=== PATIENT | female | born 1965 | race Caucasian/White ===

== ENCOUNTER 2018-11-20 15:01 | Emergency (ER) | payer OTHER, MEDICAID, SELFPAY ==
[2018-11-20 15:05] VITALS: BP 148/125; PULSE 95; RESP 18; TEMP 36.6; O2SAT 98
--- NOTE | 2018-11-20 15:08 | DI.RAD.S_ITS ---
PROCEDURE: XR SHOULDER LT MIN 2V INDICATIONS: severe left shoulder pain TECHNIQUE: 3 views of the shoulder were acquired. COMPARISON: None. FINDINGS: Bones: No acute fractures or dislocations. There is mild acromioclavicular joint degeneration. No suspicious bony lesions. Visualized ribs demonstrate old fractures of the 3rd through 6th ribs. Soft tissues: No suspicious soft tissue calcifications. IMPRESSION: 1. No acute fracture or subluxation. 2. Mild acromioclavicular joint degeneration. 3. Old healed left rib fractures noted. Dictated by: Surinder Lloyd M.D. on 11/20/2018 at 16:07 Approved by: Surinder Lloyd M.D. on 11/20/2018 at 16:10
--- NOTE | 2018-11-20 15:13 | PC.NURSE ---
Noted hypertensive: pt takes lisinopril at night
--- NOTE | 2018-11-20 15:21 | ED.EXTPRO ---
HPI - Extremity Problem General Chief complaint: Extremity Problem,Nontraumatic Stated complaint: Left shoulder pain x7 days Time Seen by Provider: 11/20/18 15:01 Source: patient Mode of arrival: ambulatory Limitations: no limitations History of Present Illness HPI Narrative: 53F former smoker patient presents with L shoulder pain in the absence of obvious injury. She has significant pain on her anterior shoulder with range of motion. She denies any chest pain or shortness of breath. She denies any head neck or back pain. She denies any numbness, tingling or weakness. She says it feels a lot like when she had injuries to her right shoulder which required rotator cuff repair Complaint: extremity pain Onset (ago): day(s) Pain Consistency: constant Quality: burning and aching Radiation: none Relieving factors: rest Exacerbating factors: range of motion Associated symptoms: denies other symptoms Related Data Home Medications Medication Instructions Recorded Confirmed diclofenac sodium 75 mg PO BID 11/20/18 11/20/18 gabapentin 100 mg PO TID 11/20/18 lisinopril 10 mg PO DAILY 11/20/18 11/20/18 meloxicam 15 mg PO DAILY 11/20/18 11/20/18 Previous Rx's Medication Instructions Recorded lidocaine 1 patch TOP DAILY #30 each 11/20/18 Allergies Allergy/AdvReac Type Severity Reaction Status Date / Time No Known Drug Allergies Allergy Verified 11/20/18 15:12 Review of Systems Constitutional Denies chills, Denies fever(s), Denies lethargy and Denies weakness Eyes Denies change in vision, Denies eye discharge, Denies irritation and Denies loss of vision ENT Ears, Nose, Mouth, and Throat: Denies change in voice, Denies neck pain and Denies sore throat Cardiovascular Denies chest pain, Denies irregular heart rhythm, Denies lightheadedness, Denies palpitations, Denies dyspnea, Denies dyspnea on exertion and Denies orthopnea Respiratory Denies cough, Denies dyspnea, Denies dyspnea on exertion and Denies wheezing Gastrointestinal Gastrointestinal: Denies abdominal pain, Denies change in bowel habits, Denies diarrhea, Denies nausea and Denies vomiting Genitourinary Denies hematuria, Denies flank pain, Denies urinary incontinence and Denies urinary urgency Musculoskeletal Reports system reviewed and no additional complaints, except as docu, Reports limited range of motion, Denies neck pain and Reports radiating pain into limb Integumentary/Breasts Denies pruritus, Denies erythema, Denies rash and Denies wounds Neurologic Denies confusion, Denies loss of vision and Denies weakness Psychiatric Denies anxiety, Denies confusion, Denies depression, Denies homicidal ideation and Denies suicidal ideation Endocrine Denies palpitations Hematologic/Lymphatic Denies easy bruising Allergic/Immunologic Denies wheezing PFSH Social History Smoking Status: Former smoker Social History Smoking Status: Former smoker Exam Narrative Exam Narrative: GEN: AOx3 and in mild distress EYES: Pupils are equal, round, and reactive to light and accommodation. Extraoccular muscles are intact bilaterally. There is no subconjunctival hemorrhage or exudate. CHEST: Lungs are clear to auscultation bilaterally and free of wheezes, rales, or rhonchi. Heart rate is regular rhythm, there are no murmurs, clicks, rubs, or gallops. There is no chest wall tenderness. ABD: Abdomen is soft and nontender. There is no guarding or rebound. Bowel sounds are normal in all 4 quadrants. There is no mass or organomegaly. EXT: Full but painful ROM of L shoulder with 5/5 strength and no numbness/tingling. Tender to palp at insertion of biceps tendon SKIN: Warm, pink, and dry. No erythema or rash Initial Vital Signs Initial Vital Signs: Vital Signs Temperature 97.9 F 11/20/18 15:05 Pulse Rate 95 H 11/20/18 15:05 Respiratory Rate 18 11/20/18 15:05 Blood Pressure 148/125 H 11/20/18 15:05 Pulse Oximetry 98 11/20/18 15:05 Procedures Orthopedic Splinting/Casting Injury #1: Side: left Upper Extremity Injury Location: shoulder Upper Extremity Immobilizer: sling/shoulder immobilizer Post splinting neuro exam: intact Post splinting vascular exam: intact Placed by: Nursing Course Orders Ordered: ED Orders 11/20/18 15:08 XR shoulder LT min 2V Stat Discontinued Medications Lidocaine (Lidoderm) 1 each TOP NOW ONE Stop: 11/20/18 16:03 Last Admin: 11/20/18 16:09 Dose: 1 each Vital Signs - 8 hr 11/20/18 15:05 11/20/18 16:17 Temperature 97.9 F Pulse Rate 95 H 87 Respiratory Rate 18 Blood Pressure 148/125 H 122/70 Pulse Oximetry 98 99 Discharge Plan Departure Patient Disposition: Home Clinical Impression: Acute shoulder pain Qualifiers: Laterality: left Qualified Code(s): M25.512 - Pain in left shoulder Discharge Date/Time: 11/20/18 16:18 Interventions: ED Discharge Assessment Last Done: 11/20/18 16:17 Instructions: DI for Shoulder Pain Activity Restrictions/Additional Instructions: *You have been diagnosed with [acute left shoulder strain] *What to do: *Take medications as directed *Follow up with your primary care provider in 2-3 days, call for an appointment. Let them know you were seen in the Emergency Department and that we ask that you be seen in follow up *Return to ER if you should have any new, worsening or concerning symptoms Prescriptions: New lidocaine 5 % adhesive patch,medicated 1 patch TOP DAILY Qty: 30 RF: 0 No Action meloxicam 15 mg tablet 15 mg PO DAILY RF: 0 lisinopril 10 mg tablet 10 mg PO DAILY RF: 0 diclofenac sodium 75 mg tablet,delayed release (DR/EC) 75 mg PO BID RF: 0 gabapentin 100 mg capsule 100 mg PO TID RF: 0
[2018-11-20] MEDS: LIDOCAINE PATCH 1 EACH ADH..PATCH TOP (16:09)
[2018-11-20 16:17] VITALS: BP 122/70; PULSE 87; O2SAT 99
== END 2018-11-20 16:18 | disposition home or self-care (01) ==
PROVIDERS: Emergency Provider Emergency Medicine
DX: M25.512 Pain in left shoulder (principal)
CPT/HCPCS: 73030; 99283